=== PATIENT | male | born 1990 | race African-American/Black ===

== ENCOUNTER 2019-05-09 20:54 | Emergency (ER) | payer OTHER ==
[2019-05-09 21:00] VITALS: BP 124/63
--- NOTE | 2019-05-09 21:07 | ED Physician Documentation ---
PD HPI UPPER EXT INJURY - Stated complaint Stated Complaint: FINGER PX - Chief complaint Chief Complaint: Ext Problem - History obtained from History obtained from: Patient - History of Present Illness Location: Left (Playing football the night he reached for the flag and something happened to his third and fourth fingers of the left hand. The fourth hurts more than third. No other injuries.) Review of Systems Constitutional: reports: Reviewed and negative Cardiac: reports: Reviewed and negative Respiratory: reports: Reviewed and negative PD PAST MEDICAL HISTORY - Allergies Allergies/Adverse Reactions: Allergies Allergy/AdvReac Type Severity Reaction Status Date / Time No Known Drug Allergies Allergy Verified 05/09/19 20:56 PD ED PE NORMAL - Vitals Vital signs reviewed: Yes - General General: Alert and oriented X 3, No acute distress - Extremities Extremities: Other (Mild tenderness of the DIP of the third digit and more significant tenderness and swelling of the PIP of the fourth digit. Normal neurovascular function of the tips.) - Neuro Neuro: Alert and oriented X 3 Results - Vitals Vitals: Vital Signs - 24 hr 05/09/19 20:56 Temperature 36.5 C Heart Rate 81 Respiratory 16 Rate Blood Pressure 124/63 O2 Saturation 92 Oxygen O2 Source Room air - Rads (name of study) L hand XR Radiology: EMP read contemporaneously (nondisplaced frx prox part of distal 3rd phalanx) Procedures - Splint (location) L 3rd finger Splint applied by: Physician Type of splint: Metal foam finger splint Other: Patient tolerated well, No complications, Neurovascular intact Departure - Departure Disposition: 01 Home, Self Care Clinical Impression: Finger fracture, left Qualifiers: Encounter type: initial encounter Finger: middle finger Fracture type: closed Phalanx: distal Fracture alignment: nondisplaced Qualified Code(s): S62.663A - Nondisplaced fracture of distal phalanx of left middle finger, initial encounter for closed fracture Sprain of left ring finger Qualifiers: Encounter type: initial encounter Sprain of finger site: interphalangeal joint Qualified Code(s): S63.635A - Sprain of interphalangeal joint of left ring finger, initial encounter Condition: Good Record reviewed to determine appropriate education?: Yes Instructions: ED Fx Finger Closed, ED Sprain Finger Comments: Keep the splint on and dry, [place], call [facility] tomorrow to arrange it. Ibuprofen as needed for pain. Forms: Activity restrictions Discharge Date/Time: 05/09/19 21:44
--- NOTE | 2019-05-09 22:00 | XRAY Report ---
Reason: hand inj 3rd/4th finger inj Procedure Date: 05/09/2019 Accession Number: [id number] / [id number] Procedure: XR - Hand 3 View LT CPT Code: FULL RESULT: EXAM: LEFT HAND RADIOGRAPHY EXAM DATE: 05/09/2019 09:24 PM. CLINICAL HISTORY: Hand injury, 3rd/4th finger. COMPARISON: None. TECHNIQUE: 3 views. FINDINGS: Bones: Nondisplaced corner fracture, base of the third distal phalanx on the ulnar side and all other traumatic or destructive bony abnormalities. Joints: Normal. No subluxations. Soft Tissues: Soft tissue swelling at the fourth PIP joint. IMPRESSION: Nondisplaced corner fracture, ulnar base of third distal phalanx. [facility]
== END 2019-05-09 21:44 | disposition home or self-care (01) ==
LOC: ED 20:54
DX: S62.663A Nondisplaced fracture of distal phalanx of left middle finger, initial encounter for closed fracture (principal); S63.635A Sprain of interphalangeal joint of left ring finger, initial encounter; W50.0XXA Accidental hit or strike by another person, initial encounter; Y93.61 Activity, american tackle football
CPT/HCPCS: 99282; 99283